=== PATIENT | female | born 1960 | race African-American/Black ===

== ENCOUNTER 2018-08-30 07:10 | Emergency (ER) | payer MEDICAID, OTHER ==
[~2018-08-30] VITALS: Ht 162.6 cm; Wt 80.0 kg
[2018-08-30] MEDS ORDERED: NITR0.4T49 SL (07:20)
[2018-08-30] MEDS ORDERED: SODIUM CHLORIDE 0.9% 500 ML IV ONE (07:37)
[2018-08-30] MEDS ORDERED: ONDANSETRON HCL 4MG/2ML INJ IV STA (07:37)
[2018-08-30] MEDS ORDERED: MORPHINE SULFATE 4 MG/ML CPJ (NOT FOR IM USE) IV STA (07:37)
[2018-08-30 08:29] LABS: BASOPHILS % 0.2 % (0.0-2.0); EOSINOPHILS % 1.7 % (0.0-5.0); HEMATOCRIT. 36.1 % (36.0-48.0); HEMOGLOBIN. 12.1 g/dL (12.0-16.0); LYMPHOCYTES % 29.1 % (20.0-50.0); MEAN CORPUSCULAR HEMOGLOBIN 30.5 pg (28.0-32.0); MEAN CORPUSCULAR VOLUME 91.1 fL (81.0-99.0); MEAN PLATELET VOLUME 8.9 fl (7.4-10.4); MONOCYTES % 6.3 % (2.0-8.0); NEUTROPHILS % 62.7 % (40.0-76.0); PLATELET 253 x1000/uL (130-400); RED BLOOD CELL COUNT 3.96 mill/uL (4.2-5.4); RED CELL DISTRIBUTION WIDTH 15.6 % (11.6-14.6)
[2018-08-30 08:35] LABS: CHLORIDE 111 mEq/L (98-107)
[2018-08-30 08:37] LABS: INR 0.9; PROTHROMBIN TIME 9.5 sec (9.1-11.1)
[2018-08-30] MEDS ORDERED: IBUPROFEN 400MG TABLET PO ONE (09:00)
[2018-08-30 09:52] LABS: CLARITY URINE CLEAR (CLEAR); COLOR URINE YELLOW (YELLOW); KETONES URINE NEGATIVE (NEGATIVE); LEUKOCYTE ESTERASE URINE NEGATIVE (NEGATIVE); NITRITE URINE NEGATIVE (NEGATIVE); OCCULT BLOOD URINE 3+ (NEGATIVE); PROTEIN URINE NEGATIVE (NEGATIVE); SPECIFIC GRAVITY URINE 1.017 (1.005-1.030); UROBILINOGEN URINE 0.2 E.U./dL (0.2-1.0)
[2018-08-30 10:53] VITALS: BP 175/83
== END 2018-08-30 10:52 | disposition home or self-care (01) ==
LOC: ER 07:23
DX: N20.0 Calculus of kidney (principal); N13.4 Hydroureter; I25.10 Atherosclerotic heart disease of native coronary artery without angina pectoris; E11.9 Type 2 diabetes mellitus without complications; E78.00 Pure hypercholesterolemia, unspecified; I10 Essential (primary) hypertension; I25.2 Old myocardial infarction; F17.200 Nicotine dependence, unspecified, uncomplicated; Z88.1 Allergy status to other antibiotic agents; Z86.73 Personal history of transient ischemic attack (TIA), and cerebral infarction without residual deficits; Z88.0 Allergy status to penicillin; Z95.5 Presence of coronary angioplasty implant and graft
CPT/HCPCS: 36415; 74176; 80053; 81003; 83690; 85025; 85610; 96374; 96375; 99285; J2270; J2405; J7030; Z7610

== ENCOUNTER 2019-05-02 11:00 | Emergency (ER) | payer OTHER ==
[~2019-05-02] VITALS: Ht 170.2 cm; Wt 82.0 kg
[~2019-05-02 11:00] MED LIST: NITR0.4T49 SL
[2019-05-02] MEDS ORDERED: SODIUM CHLORIDE 0.9% 1,000 ML IV ONE (11:30)
[2019-05-02] MEDS ORDERED: KETOROLAC 30MG/ML VIAL IV ONE (11:30)
[2019-05-02] MEDS ORDERED: ONDANSETRON HCL 4MG/2ML INJ IV ONE (11:30)
[2019-05-02 12:07] LABS: CLARITY URINE CLEAR (CLEAR); COLOR URINE YELLOW (YELLOW); KETONES URINE NEGATIVE (NEGATIVE); LEUKOCYTE ESTERASE URINE TRACE (NEGATIVE); NITRITE URINE NEGATIVE (NEGATIVE); OCCULT BLOOD URINE 2+ (NEGATIVE); PH URINE 5.5 (4.5-8.0); PROTEIN URINE NEGATIVE (NEGATIVE); SPECIFIC GRAVITY URINE 1.011 (1.005-1.030); UROBILINOGEN URINE 0.2 E.U./dL (0.2-1.0)
[2019-05-02 15:40] VITALS: BP 115/57
== END 2019-05-02 15:46 | disposition home or self-care (01) ==
LOC: ER 11:00
DX: N20.0 Calculus of kidney (principal); Z88.0 Allergy status to penicillin; Z88.5 Allergy status to narcotic agent; Z86.73 Personal history of transient ischemic attack (TIA), and cerebral infarction without residual deficits
CPT/HCPCS: 74176; 81003; 96361; 96374; 96375; 99284; J1885; J2405; J7030; Z7610

== ENCOUNTER 2023-04-04 11:05 | Emergency (ER) | payer OTHER ==
[~2023-04-04] VITALS: Ht 177.8 cm; Wt 84.0 kg
[2023-04-04] MEDS ORDERED: CYCLOBENZAPRINE 10MG TABLET PO ONE (12:00)
[2023-04-04] MEDS ORDERED: TRAMADOL 50MG TABLET PO NR (12:00)
[2023-04-04 12:04] LABS: BASOPHILS % 0.5 % (0.0-2.0); EOSINOPHILS % 2.8 % (0.0-5.0); HEMOGLOBIN. 11.9 g/dL (12.0-16.0); LYMPHOCYTES % 28.1 % (20.0-50.0); MEAN CORPUSCULAR HEMOGLOBIN 29.4 pg (28.0-32.0); MEAN CORPUSCULAR VOLUME 86.9 fL (81.0-99.0); MEAN PLATELET VOLUME 8.4 fl (7.4-10.4); MONOCYTES % 5.3 % (2.0-8.0); NEUTROPHILS % 63.3 % (40.0-76.0); PLATELET 299 x1000/uL (130-400); RED BLOOD CELL COUNT 4.03 mill/uL (4.2-5.4); RED CELL DISTRIBUTION WIDTH 18.7 % (11.6-14.6)
[2023-04-04] MEDS ORDERED: GABA-290 MT (13:43)
[2023-04-04 14:00] VITALS: BP 164/93
== END 2023-04-04 15:24 | disposition home or self-care (01) ==
LOC: ER 11:12
DX: E11.42 Type 2 diabetes mellitus with diabetic polyneuropathy (principal); M79.604 Pain in right leg; M79.605 Pain in left leg; I25.10 Atherosclerotic heart disease of native coronary artery without angina pectoris; I11.9 Hypertensive heart disease without heart failure; I25.2 Old myocardial infarction; Z88.0 Allergy status to penicillin; Z88.6 Allergy status to analgesic agent
CPT/HCPCS: 36415; 80048; 83735; 85025; 99283; Z7610